=== PATIENT | female | born 1990 | race Caucasian/White ===

== ENCOUNTER 2023-04-19 | Observation (INO) | payer SELFPAY ==
[2023-04-19 00:53] LABS: BHCG - Serum POSITIVE (NEGATIVE); Pregs Control Background? CLEAR/WHITE (CLR/WHITE); Pregs Control Bar Appear? YES (CONTROL BAR)
[2023-04-19 00:59] LABS: #Monocytes 1.1 10x3/uL (0.0-1.1); #Neutrophils 17.7 10x3/uL (1.5-8.4); %Basophils 0.2 % (0.0-2.0); %Eosinophils 0.1 % (0.0-6.0); %Lymphocytes 9.1 % (18.0-47.0); %Monocytes 5.3 % (0.0-10.0); %Neutrophils 84.7 % (40.0-75.0); Hematocrit 21.6 % (34.9-44.5); Hemoglobin 7.6 g/dL (12.0-15.5); Mean Corpuscular HGB CONC 35.2 g/dL (32.0-36.0); Mean Corpuscular Volume 79.7 fl (81.6-98.3); Mean Platelet Volume 10.9 fl (7.4-10.4); Platelet Count 329 10x3/uL (150-450); RBC Distribution Width 13.2 % (11.5-14.5); Red Blood Cell (RBC) Count 2.71 10x6/uL (3.90-5.03); White Blood Cell (WBC) Count 20.9 10x3/uL (3.5-10.5)
[2023-04-19 01:06] LABS: ALT (SGPT) 13 U/L (8-55); AST (SGOT) 11 U/L (5-34); Albumin 3.3 g/dL (3.5-5.0); Alkaline Phosphatase 27 U/L (40-110); Anion Gap 13 mmol/L (10-20); BUN (Urea Nitrogen) 11 mg/dL (7.0-18.7); Bilirubin, Total 0.4 mg/dL (0.2-1.2); Calc. Creatinine Clearance 0 mL/min (70-130); Calcium 7.9 mg/dL (7.8-10.44); Carbon Dioxide 18 mmol/L (22-29); Chloride 103 mmol/L (98-107); Estimated GFR 119; Globulin 1.9 g/dL (2.4-3.5); Glucose 163 mg/dL (70-105); Potassium 3.8 mmol/L (3.5-5.1); Protein, Total 5.2 g/dL (6.0-8.3); Sodium 130 mmol/L (136-145)
[2023-04-19] MEDS ORDERED: fentaNYL 50 mcg/mL 1 mL Vial ONE ×2 (01:40→03:24)
[2023-04-19] MEDS ORDERED: Bupivacaine PF 0.5% 30 ML VIAL ONE ×2 (01:54→02:23)
[2023-04-19] MEDS ORDERED: EPINEPHrine 1 MG/ML VIAL ONE (01:54)
[2023-04-19] MEDS ORDERED: Methylergonovine 0.2 MG/ML VIAL ONE (01:55)
[2023-04-19] MEDS ORDERED: Misoprostol 200 MCG TAB ONE (01:55)
[2023-04-19] MEDS ORDERED: PROPOFOL 20 ML ONE (02:07)
[2023-04-19] MEDS ORDERED: Rocuronium Bromide 10 MG/ML (10ML VIAL) ONE (02:08)
[2023-04-19] MEDS ORDERED: Dexamethasone 20 MG/5 ML VIAL ONE (02:08)
[2023-04-19] MEDS ORDERED: Ondansetron PF 4 MG/2 ML Vial ONE (02:08)
[2023-04-19] MEDS ORDERED: Dexmedetomidine 200 MCG/2 ML VIAL ONE (02:14)
[2023-04-19 02:23] LABS: Bilirubin Neg (Negative); Blood, Urine Negative (Negative); Glucose, Urine (Dipstick) Normal (Negative); Ketone, Urine 5 mg/dL (Negative); Leukocyte Negative (Negative); Nitrite Negative (Negative); Protein, Urine (Dipstick) 30 mg/dl (Neg-Trace); Specific Gravity, Urine 1.025 (1.005-1.030); Urobilinogen Normal mg/dL (Less than 2)
[2023-04-19] MEDS ORDERED: EPINEPHrine 1 MG/ML AMP ONE (02:23)
[2023-04-19] MEDS ORDERED: PHENYLEPHRINE-NS 100 MCG/ML 10 ML SYRINGE ONE ×2 (02:23→03:04)
[2023-04-19 02:24] LABS: Clarity Clear (Clear)
[2023-04-19 02:30] LABS: Bacteria/HPF 1+ HPF (None Seen); CAUTI Indications for Culture Pelvic or flank pain; Mucous/LPF 2+ LPF (<2+); RBC/HPF None Seen HPF (0-3); Squamous Epithelial None Seen HPF (0-3)
[2023-04-19 02:31] LABS: Urine Culture Reflex No No
[2023-04-19] MEDS ORDERED: Albumin 5% 500 ML ONE (02:58)
[2023-04-19] MEDS ORDERED: Calcium Chloride 1 GM/10 ML Abboject SYRINGE ONE (03:04)
[2023-04-19] MEDS ORDERED: Glycopyrrolate 0.2 MG/ML 5 ML SYRINGE ONE (03:22)
[2023-04-19] MEDS ORDERED: Ondansetron PF 4 MG/2 ML Vial IVP PRN (03:45)
[2023-04-19] MEDS ORDERED: Bisacodyl 10 MG SUPP PR PRN (03:45)
[2023-04-19] MEDS ORDERED: HYDROcodone/Acetaminophen 5/325 mg Tablet PO PRN (03:45)
[2023-04-19] MEDS ORDERED: Ondansetron HCl/PF 4 MG/2 ML Vial IVP PRN (04:15)
[2023-04-19 04:32] LABS: Hematocrit 23.2 % (34.9-44.5); Hemoglobin 8.3 g/dL (12.0-15.5); Mean Corpuscular HGB CONC 35.8 g/dL (32.0-36.0); Mean Corpuscular Hemoglobin 30.2 pg (27.0-33.0); Mean Corpuscular Volume 84.4 fl (81.6-98.3); Red Blood Cell (RBC) Count 2.75 10x6/uL (3.90-5.03); White Blood Cell (WBC) Count 15.1 10x3/uL (3.5-10.5)
[2023-04-19 04:34] LABS: #Monocytes 0.7 10x3/uL (0.0-1.1); #Neutrophils 12.9 10x3/uL (1.5-8.4); %Basophils 0.1 % (0.0-2.0); %Monocytes 4.5 % (0.0-10.0); %Neutrophils 85.7 % (40.0-75.0); Platelet Count 72 10x3/uL (150-450)
[2023-04-19 06:04] VITALS: BMI 30.3
[2023-04-19] MEDS: Ibuprofen 800 MG TAB PO SCH (06:32)
[2023-04-19] MEDS: FLU VACC QS2023-24(6MOS UP)/PF 60 MCG/0.5 ML SYRINGE IM ONE (06:40)
[2023-04-19] MEDS: Docusate 100 MG CAP PO PRN (07:52)
[2023-04-19] MEDS: Ferrous Sulfate 325 MG TAB PO SCH (07:52)
[2023-04-19] MEDS: HYDROcodone/Acetaminophen 5/325 mg Tablet PO PRN (08:44)
[2023-04-19 09:22] LABS: Hematocrit 25.8 % (34.9-44.5); Hemoglobin 9.3 g/dL (12.0-15.5); Mean Corpuscular Volume 83.2 fl (81.6-98.3); Mean Platelet Volume 10.6 fl (7.4-10.4); Platelet Count 206 10x3/uL (150-450); RBC Distribution Width 13.7 % (11.5-14.5); White Blood Cell (WBC) Count 17.1 10x3/uL (3.5-10.5)
[2023-04-19] MEDS: Simethicone Chewable 80 MG TAB PO PRN (10:36)
[2023-04-19 15:57] LABS: Hematocrit 25.2 % (34.9-44.5); Hemoglobin 8.7 g/dL (12.0-15.5); Mean Corpuscular HGB CONC 34.5 g/dL (32.0-36.0); Mean Corpuscular Hemoglobin 28.7 pg (27.0-33.0); Mean Corpuscular Volume 83.2 fl (81.6-98.3); Platelet Count 241 10x3/uL (150-450); RBC Distribution Width 13.6 % (11.5-14.5); Red Blood Cell (RBC) Count 3.03 10x6/uL (3.90-5.03); White Blood Cell (WBC) Count 18.1 10x3/uL (3.5-10.5)
[2023-04-20 04:50] LABS: Hematocrit 20.9 % (34.9-44.5); Hemoglobin 7.6 g/dL (12.0-15.5); Mean Corpuscular HGB CONC 36.4 g/dL (32.0-36.0); Mean Corpuscular Hemoglobin 30.8 pg (27.0-33.0); Mean Corpuscular Volume 84.6 fl (81.6-98.3); Mean Platelet Volume 10.8 fl (7.4-10.4); Platelet Count 179 10x3/uL (150-450); RBC Distribution Width 13.9 % (11.5-14.5); Red Blood Cell (RBC) Count 2.47 10x6/uL (3.90-5.03); White Blood Cell (WBC) Count 13.6 10x3/uL (3.5-10.5)
[2023-04-20 17:10] LABS: Hematocrit 26.8 % (34.9-44.5); Hemoglobin 9.5 g/dL (12.0-15.5)
[2023-04-21 04:24] LABS: Hematocrit 27.4 % (34.9-44.5); Hemoglobin 9.4 g/dL (12.0-15.5)
[2023-04-21 04:41] VITALS: TEMP 98.5
[2023-04-21 07:32] VITALS: BP 120/62
== END 2023-04-21 09:44 | disposition home or self-care (01) ==
LOC: CSHERS → CSHPP 05:24 → INTOOBSV 05:24
PROVIDERS: ADMIT Obstetrics & Gynecology; ATTEND Obstetrics & Gynecology
PROC: 10T24ZZ Resection of Products of Conception, Ectopic, Percutaneous Endoscopic Approach (ICD-10-PCS; principal; 2023-04-19)
DX: O00.101 Right tubal pregnancy without intrauterine pregnancy (principal); K66.0 Peritoneal adhesions (postprocedural) (postinfection); K66.1 Hemoperitoneum; D62 Acute posthemorrhagic anemia; J45.909 Unspecified asthma, uncomplicated; Z79.899 Other long term (current) drug therapy; Z88.2 Allergy status to sulfonamides; Z3A.08 8 weeks gestation of pregnancy
CPT/HCPCS: 36415; 36430; 51702; 76856; 80053; 81001; 84702; 84703; 85014; 85018; 85025; 85027; 85461; 86850; 86900; 86901; 88305; 90384; 93005; 96361; 96372; 96374; G0378; J0171; J0665; J1100; J2210; J2405; J2704; J3010; P9016; P9045